=== PATIENT | male | born 1980 | race Caucasian/White ===

== ENCOUNTER → 2020-08-18 | Outpatient (CLI) | payer BC ==
[~2020-08-18] MED LIST: LOPRESSOR 25 MG25 MG PO
[2020-08-18 17:59] LABS: HEMOGLOBIN 15.2 gm/dl (14.0-17.5); RED BLOOD COUNT 4.86 M/UL (4.20-5.50); WHITE BLOOD COUNT 6.9 K/UL (4.5-11.0)
[2020-08-18 18:20] LABS: BUN/CREATININE RATIO 9 (0-10)
== END ==
LOC: LAB 17:12
PROVIDERS: Nurse Practitioner Family
DX: R53.83 Other fatigue (principal); I10 Essential (primary) hypertension; E78.5 Hyperlipidemia, unspecified
CPT/HCPCS: 80053; 80061; 84439; 84443; 85025

== ENCOUNTER 2021-11-01 21:40 | Emergency (ER) | payer BC ==
[2021-11-01] MEDS ORDERED: IBUPROFEN600 MG PO (23:39)
== END 2021-11-01 23:49 | disposition home or self-care (01) ==
LOC: ER1 21:40
DX: S60.221A Contusion of right hand, initial encounter (principal); F17.210 Nicotine dependence, cigarettes, uncomplicated; Z88.5 Allergy status to narcotic agent; W23.1XXA Caught, crushed, jammed, or pinched between stationary objects, initial encounter; Y92.009 Unspecified place in unspecified non-institutional (private) residence as the place of occurrence of the external cause
CPT/HCPCS: 73130; 99283